=== PATIENT | male | born 1980 | race Two or more races ===

== ENCOUNTER 2016-10-04 02:24 | Emergency (ER) | payer SELFPAY ==
[~2016-10-04] VITALS: Ht 185.4 cm; Wt 81.6 kg
[2016-10-04] MEDS ORDERED: ONDANSETRON HCL 4 MG/2 ML VIAL ONE (02:25)
[2016-10-04] MEDS ORDERED: cefTRIAXone 1GM/50ML D5W 50 ML IV ONE (02:25)
[2016-10-04 02:30] VITALS: BP 60/46
[2016-10-04] MEDS ORDERED: ETOMIDATE (2MG/ML) 20ML VIAL IV ONE ×2 (02:42→04:30)
[2016-10-04] MEDS ORDERED: SUCCINYLCHOLINE CHLORIDE 20 MG/ML 10ML VIAL IV ONE ×2 (02:42→04:30)
[2016-10-04] MEDS ORDERED: MIDAZOLAM DRIP 50 mg/50mL NS 50 ML IV ONE (02:43)
[2016-10-04] MEDS ORDERED: HYDROmorphone HCL 2 MG/ML VL IV ONE (04:30)
[2016-10-04] MEDS ORDERED: ONDANSETRON HCL 4 MG/2 ML VIAL IV ONE (04:30)
[2016-10-04] MEDS ORDERED: MIDAZOLAM DRIP 50 mg/50mL NS 50 ML IV SCH (19:54)
== END 2016-10-04 05:10 | disposition critical access hospital (66) ==
LOC: EDSEX 02:29 → ER 02:29
DX: S71.102A Unspecified open wound, left thigh, initial encounter (principal); S21.202A Unspecified open wound of left back wall of thorax without penetration into thoracic cavity, initial encounter; S61.402A Unspecified open wound of left hand, initial encounter; S81.802A Unspecified open wound, left lower leg, initial encounter; R41.82 Altered mental status, unspecified; R53.1 Weakness; R20.0 Anesthesia of skin; F17.210 Nicotine dependence, cigarettes, uncomplicated; F12.10 Cannabis abuse, uncomplicated; F15.10 Other stimulant abuse, uncomplicated; W34.00XA Accidental discharge from unspecified firearms or gun, initial encounter; Y93.89 Activity, other specified; Y99.8 Other external cause status; Y92.89 Other specified places as the place of occurrence of the external cause
CPT/HCPCS: 31500; 51702; 71010; 73130; 73552; 73590; 74000; 86850; 86900; 86901; 86920; 96374; 96375; 99152; 99285; J0330; J0696; J2250; J2405; P9016; 36430